=== PATIENT | female | born 1965 | race Two or more races ===

== ENCOUNTER 2017-11-13 13:58 | Outpatient (CLI) | payer BC ==
--- NOTE | 2017-11-13 17:12 | Diagnostic Imaging Report ---
Indication: Cough Technique: 2 views of the chest Comparison: Findings: Lungs and pleural spaces are clear. The heart size is normal. There is cervical spine fusion hardware Impression: Negative
== END 2017-11-13 15:58 | disposition home or self-care (01) ==
LOC: RAD 13:58
DX: Z01.818 Encounter for other preprocedural examination (principal); R05 Cough; Z98.1 Arthrodesis status
CPT/HCPCS: 71046